=== PATIENT | male | born 1985 | race Caucasian/White ===

== ENCOUNTER 2017-05-09 22:26 | Observation (INO) | payer MEDICAID, OTHER, SELFPAY ==
[~2017-05-09] VITALS: Ht 170.2 cm; Wt 70.0 kg
[2017-05-09] MEDS ORDERED: LITH150C PO (22:32)
[2017-05-09] MEDS ORDERED: OLAN5TAB9 PO (22:32)
[2017-05-09] MEDS ORDERED: CITA10TA8 PO (22:32)
[2017-05-09 22:45] LABS: DAU SCREEN DISCLAIMER
[2017-05-09] MEDS ORDERED: LORazepam 1MG TABLET ONE (22:49)
[2017-05-09] MEDS ORDERED: HALOPERIDOL 5 MG TABLET PO ONE (23:00)
[2017-05-09] MEDS ORDERED: LORazepam 1MG TABLET PO ONE (23:00)
[2017-05-09 23:05] LABS: BLOOD UREA NITROGEN 12 mg/dL (7-18)
[2017-05-09 23:13] LABS: ACETAMINOPHEN < 2 mcg/mL (10-30)
[2017-05-10] MEDS ORDERED: ONDANSETRON ODT 4 MG PO PRN
[2017-05-10] MEDS ORDERED: ZIPRASIDONE 20 MG INJ IM PRN
[2017-05-10] MEDS ORDERED: ACETAMINOPHEN 325 MG TABLET PO PRN
[2017-05-10] MEDS ORDERED: ACETAMINOPHEN 325 MG TABLET ONE (19:20)
[2017-05-11] MEDS: QUETIAPINE 25MG TABLET PO PRN ×2 (13:30→18:24)
[2017-05-11] MEDS ORDERED: LORazepam 1MG TABLET ONE (18:18)
[2017-05-11] MEDS ORDERED: LORazepam 1MG TABLET PO ONE (18:30)
[2017-05-12] MEDS: QUETIAPINE 25MG TABLET PO PRN ×3 (07:35→19:55)
[2017-05-12 20:15] VITALS: BP 125/81
[2017-05-13 07:51] VITALS: BP 132/79
[2017-05-13] MEDS: QUETIAPINE 25MG TABLET PO PRN (07:58)
[2017-05-13] MEDS ORDERED: LORazepam 1MG TABLET PO PRN (09:00)
== END 2017-05-13 17:45 | disposition home or self-care (01) ==
LOC: ED 23:26 → EDIP 23:27 → ED 23:30 → SUATTDRO 23:44 → 3E 05-12 20:14
DX: R45.851 Suicidal ideations (principal); F31.9 Bipolar disorder, unspecified; F20.0 Paranoid schizophrenia; R44.0 Auditory hallucinations; F15.90 Other stimulant use, unspecified, uncomplicated; F12.90 Cannabis use, unspecified, uncomplicated
CPT/HCPCS: 36415; 80048; 80178; 80307; 80329; 82040; 85025; 96372; 99285; G0378; J3486; G0480

== ENCOUNTER 2018-03-17 02:02 | Observation (INO) | payer MEDICAID ==
[~2018-03-17] VITALS: Ht 182.9 cm; Wt 79.5 kg
[~2018-03-17 02:02] MED LIST: CITA10TA8 PO; LITH150C PO; OLAN5TAB9 PO
[2018-03-17 02:32] LABS: BASOPHILS # (AUTO) 0.01 x10^3/uL (0-0.1); BASOPHILS % (AUTO) 0 % (0-1); EOSINOPHILS # (AUTO) 0.01 x10^3/uL (0-0.4); EOSINOPHILS % (AUTO) 0 % (1-7); LYMPHOCYTES % (AUTO) 6 % (22-44); MD NO; MEAN CORPUSCULAR HEMOGLOBIN 31.4 pg (27.5-34.5); MEAN CORPUSCULAR HGB CONC 34.4 g/dL (33.2-36.2); MEAN CORPUSCULAR VOLUME 91.2 fL (81-97); MEAN PLATELET VOLUME 7.9 fL (7.4-10.4); MONOCYTES # (AUTO) 0.53 x10^3/uL (0.2-0.8); MONOCYTES % (AUTO) 4 % (2-9); NEUTROPHILS # (AUTO) 12.75 x10^3/uL (1.8-6.8); NEUTROPHILS % (AUTO) 90 % (42-75); PLATELET COUNT 308 x10^3/uL (130-400); RED BLOOD COUNT 5.08 x10^6/uL (4.38-5.82)
[2018-03-17 02:41] LABS: ALANINE AMINOTRANSFERASE 21 U/L (12-78); ALBUMIN 4.3 g/dL (3.4-5.0); ANION GAP 8 mmol/L (5-15); CALCIUM 9.4 mg/dL (8.5-10.1); CHLORIDE 110 mmol/L (98-107); CREATININE 1.25 mg/dL (0.7-1.3)
[2018-03-17 02:43] LABS: ALKALINE PHOSPHATASE 65 U/L (45-117); BILIRUBIN,TOTAL 0.9 mg/dL (0.2-1.0); TOTAL PROTEIN 7.5 g/dL (6.4-8.2)
[2018-03-17 02:54] LABS: ACETAMINOPHEN < 2 mcg/mL (10-30); SALICYLATE LEVEL < 1.7 mg/dL (2.8-20.0)
[2018-03-17 03:26] LABS: AMPHETAMINE SCREEN, URINE Negative (Negative); BARBITURATE SCREEN, URINE Negative (Negative); BENZODIAZEPINE SCREEN, URINE Positive (Negative); CANNABINOID SCREEN, URINE Positive (Negative); COCAINE SCREEN, URINE Negative (Negative); METHADONE SCREEN, URINE Negative (Negative); OPIATE SCREEN, URINE Positive (Negative)
[2018-03-17] MEDS ORDERED: ONDANSETRON ODT 4 MG PO PRN (06:00)
[2018-03-17] MEDS ORDERED: ACETAMINOPHEN 325 MG TABLET PO PRN (06:00)
[2018-03-17] MEDS ORDERED: ZIPRASIDONE 20 MG INJ IM PRN (06:00)
[2018-03-17] MEDS ORDERED: DOCUSATE 100 MG CAPSULE PO PRN (06:00)
[2018-03-17] MEDS ORDERED: OLANZAPINE 5 MG TABLET ONE (10:54)
[2018-03-17] MEDS: OLANZAPINE 5 MG TABLET PO SCH (11:13)
[2018-03-17] MEDS: LITHIUM CARBONATE 150 MG CAPSULE PO SCH (11:13)
[2018-03-17 15:33] VITALS: BP 134/86
[2018-03-17] MEDS: ZIPRASIDONE 20MG CAPSULE PO PRN (18:09)
[2018-03-17 19:27] VITALS: BP_SYST 101; BP_SYST 130; BP_DIAS 67; BP_DIAS 76
[2018-03-18 07:34] VITALS: BP 116/83
[2018-03-18] MEDS: LITHIUM CARBONATE 150 MG CAPSULE PO SCH (08:41)
[2018-03-18] MEDS: OLANZAPINE 5 MG TABLET PO SCH (08:41)
[2018-03-18] MEDS: ZIPRASIDONE 20MG CAPSULE PO PRN (08:48)
[2018-03-18 19:51] VITALS: BP 144/93
[2018-03-19] MEDS: ZIPRASIDONE 20MG CAPSULE PO PRN (01:21)
[2018-03-19 07:50] VITALS: BP 110/77
[2018-03-19] MEDS: LITHIUM CARBONATE 150 MG CAPSULE PO SCH (09:25)
[2018-03-19] MEDS: OLANZAPINE 5 MG TABLET PO SCH (09:25)
[2018-03-19] MEDS ORDERED: OLAN5TAB9 PO (15:52)
[2018-03-20] MEDS ORDERED: OLANZAPINE 5 MG TABLET PO SCH (09:00)
== END 2018-03-19 16:37 | disposition home or self-care (01) ==
LOC: ED 05:03 → EDIP 05:11 → 3E 15:30
PROVIDERS: ADMIT Family Medicine; ATTEND Family Medicine
DX: T42.72XA Poisoning by unspecified antiepileptic and sedative-hypnotic drugs, intentional self-harm, initial encounter (principal); F11.23 Opioid dependence with withdrawal; F12.10 Cannabis abuse, uncomplicated; F15.11 Other stimulant abuse, in remission; F20.9 Schizophrenia, unspecified; F31.9 Bipolar disorder, unspecified; Y92.89 Other specified places as the place of occurrence of the external cause
CPT/HCPCS: 36415; 80053; 80307; 80329; 85025; 93005; 99285; G0378; Q0177; G0480